=== PATIENT | female | born 1960 | race Caucasian/White ===

== ENCOUNTER 2022-02-21 12:29 | Emergency (ER) | payer MEDICAID ==
[~2022-02-21] VITALS: Ht 165.1 cm; Wt 43.6 kg
[2022-02-21 13:19] LABS: HEMATOCRIT 44.9 % (37.0-47.0); HEMOGLOBIN 14.3 g/dl (12.0-16.0); IMMATURE GRANULOCYTES 0.2 % (0.0-5.0); MEAN CELL VOLUME 90.5 fL CALC (80.0-100.0); MEAN CORPUSCULAR HGB 28.8 pG CALC (26.0-32.0); MEAN CORPUSCULAR HGB CONC 31.8 g/dL CAL (32.0-36.0); NEUT# 2.96 thou/uL (2.00-7.15); RED BLOOD COUNT 4.96 mill/uL (4.20-5.60); RED CELL DISTRI WIDTH 13.8 % (11.5-15.5)
[2022-02-21 13:36] LABS: ALBUMIN 4.6 g/dL (3.2-5.0); ALKALINE PHOSPHATASE 51 u/l (38-126); ANION GAP 16 (6-22 (CALC)); BILIRUBIN, TOTAL 0.5 mg/dL (0.0-1.4); BUN 18 mg/dL (7-17); BUN/CREATININE RATIO 20 (12-20 (CALC)); CARBON DIOXIDE 23 mmol/l (22-30); CHLORIDE 106 mmol/l (95-108); CREATININE 0.9 mg/dL (0.5-1.0); GFR > 60 ML/MIN (>=60 (CALC)); GFR FOR AFR.AMER. > 60 ML/MIN (>=60 (CALC)); LIPASE 77 u/l (23-300); POTASSIUM 4.1 mmol/l (3.5-5.1); SGOT/AST 29 u/l (14-36); SODIUM 140 mmol/l (137-146); TOTAL PROTEIN 7.9 g/dL (6.3-8.2)
[2022-02-21 13:37] LABS: D-DIMER 1.23 mg/L (0.19-0.60)
[2022-02-21 13:45] LABS: ACT PARTIAL THROMBO TIME 24.3 SECONDS (20.0-32.5); PROTHROMBIN TIME 10.4 SECONDS (9.0-12.5)
[2022-02-21] MEDS ORDERED: AMOX/K CLAV875 M1 PO (16:54)
[2022-02-21] MEDS ORDERED: MEDDOSEPAK PO (16:54)
[2022-02-21] MEDS ORDERED: TESSALON PERLE100 MG PO (16:54)
[2022-02-21 16:58] VITALS: BP 135/86
== END 2022-02-21 17:46 | disposition home or self-care (01) ==
LOC: ED 12:29
DX: J44.1 Chronic obstructive pulmonary disease with (acute) exacerbation (principal); Z87.891 Personal history of nicotine dependence; Z87.01 Personal history of pneumonia (recurrent); Z21 Asymptomatic human immunodeficiency virus [HIV] infection status
CPT/HCPCS: Q9967

== ENCOUNTER 2022-09-15 19:37 | Emergency (ER) | payer MEDICAID ==
[~2022-09-15] VITALS: Ht 165.1 cm; Wt 43.0 kg
[2022-09-15] VITALS (9 sets, daily range): BP systolic 115–143; BP diastolic 79–92
[~2022-09-15 19:37] MED LIST: AMOX/K CLAV875 M1 PO; MEDDOSEPAK PO; TESSALON PERLE100 MG PO
[2022-09-15] MEDS ORDERED: CLOPIDOGREL75 MG PO (20:21)
[2022-09-15] MEDS ORDERED: ASPIRIN81 MG PO (20:22)
[2022-09-15] MEDS ORDERED: ALBUTEROL SUL0.083 % IN (20:22)
[2022-09-15] MEDS ORDERED: ATORVASTATIN CA20 MG PO (20:23)
[2022-09-15] MEDS ORDERED: PREZISTA800 MG PO (20:24)
[2022-09-15] MEDS ORDERED: SYMBICORT1 AE1 IN (20:24)
[2022-09-15] MEDS ORDERED: PROLIA60 MG/ML SC (20:25)
[2022-09-15] MEDS ORDERED: TIVICAY50 MG PO (20:26)
[2022-09-15] MEDS ORDERED: IPRATROPIU0.5 MG/3 M IN (20:27)
[2022-09-15] MEDS ORDERED: EPIPEN 2-P0.3 MG/0.3 IM (20:27)
[2022-09-15] MEDS ORDERED: ISOSORB MONO30 MG PO (20:28)
[2022-09-15] MEDS ORDERED: LISINOPRIL5 MG PO (20:28)
[2022-09-15] MEDS ORDERED: MULTI VIT PO (20:29)
[2022-09-15] MEDS ORDERED: CALCIUM 600 +600 MG PO (20:30)
[2022-09-15] MEDS ORDERED: EDURANT25 MG PO (20:31)
[2022-09-15] MEDS ORDERED: NORVIR100 M1 PO (20:32)
[2022-09-15 20:49] LABS: HEMOGLOBIN 12.5 g/dl (12.0-16.0); MEAN CELL VOLUME 89.9 fL CALC (80.0-100.0); MEAN CORPUSCULAR HGB 29.5 pG CALC (26.0-32.0); MEAN CORPUSCULAR HGB CONC 32.8 g/dL CAL (32.0-36.0); NEUT# 1.84 thou/uL (2.00-7.15); RED BLOOD COUNT 4.24 mill/uL (4.20-5.60); RED CELL DISTRI WIDTH 14.6 % (11.5-15.5)
[2022-09-15 20:53] LABS: HEMATOCRIT 38.1 % (37.0-47.0)
[2022-09-15 21:00] LABS: ALBUMIN 4.4 g/dL (3.2-5.0); ALKALINE PHOSPHATASE 45 u/l (38-126); ANION GAP 12 (6-22 (CALC)); BILIRUBIN, TOTAL 0.3 mg/dL (0.0-1.4); BUN 17 mg/dL (8-23); BUN/CREATININE RATIO 16 (12-20 (CALC)); CARBON DIOXIDE 25 mmol/l (22-30); CHLORIDE 104 mmol/l (95-108); GFR FOR AFR.AMER. > 60 ML/MIN (>=60 (CALC)); GFR OTHER RACES 56 ML/MIN (>=60 (CALC)); SGOT/AST 34 u/l (9-36); SODIUM 138 mmol/l (137-146); TOTAL PROTEIN 7.7 g/dL (6.3-8.2)
[2022-09-15] MEDS ORDERED: PAXLOVID PO (22:22)
[2022-09-16 00:37] VITALS: BP 115/79
[2022-09-16 01:30] LABS: URINE BILIRUBIN - DIPSTICK NEGATIVE (NEGATIVE); URINE BLOOD DIPSTICK NEGATIVE (NEGATIVE); URINE COLOR YELLOW; URINE GLUCOSE - DIPSTICK NEGATIVE (NEGATIVE); URINE KETONE NEGATIVE (NEGATIVE); URINE LEUK ESTERASE NEGATIVE (NEGATIVE); URINE PROTEIN - DIPSTICK NEGATIVE (NEG-TRACE); URINE SPECIFIC GRAVITY <=1.005; URINE UROBILINOGEN - DIPSTICK 0.2 E.U./dL (0.2)
[2022-09-16 01:31] LABS: URINE NITRITE - DIPSTICK NEGATIVE (Negative)
== END 2022-09-16 00:37 | disposition home or self-care (01) ==
LOC: ED 19:37
PROVIDERS: Emergency Medicine
DX: U07.1 COVID-19 (principal); R50.9 Fever, unspecified; R05.9 Cough, unspecified; R52 Pain, unspecified; J02.9 Acute pharyngitis, unspecified; Z21 Asymptomatic human immunodeficiency virus [HIV] infection status

== ENCOUNTER 2024-10-21 03:12 | Emergency (ER) | payer SELFPAY ==
[2024-10-21] VITALS (9 sets, daily range): BP systolic 92–114; BP diastolic 67–90
[~2024-10-21] VITALS: Ht 165.1 cm; Wt 37.0 kg
[~2024-10-21 03:12] MED LIST changes: +ALBUTEROL SUL0.083 % IN; +ASPIRIN81 MG PO; +ATORVASTATIN CA20 MG PO; +CALCIUM 600 +600 MG PO; +CLOPIDOGREL75 MG PO; +EDURANT25 MG PO; +EPIPEN 2-P0.3 MG/0.3 IM; +IPRATROPIU0.5 MG/3 M IN; +ISOSORB MONO30 MG PO; +LISINOPRIL5 MG PO; +MULTI VIT PO; +NORVIR100 M1 PO; +PAXLOVID PO; +PREZISTA800 MG PO; +PROLIA60 MG/ML SC; +SYMBICORT1 AE1 IN; +TIVICAY50 MG PO
[2024-10-21] MEDS ORDERED: ONDANSETRON HCl 4 MG/2 ML SDV IV ONE (04:20)
[2024-10-21] MEDS ORDERED: MORPHINE SULFATE 4 MG/ML VIAL IV ONE ×2 (04:20→07:40)
[2024-10-21 04:26] LABS: URINE BILIRUBIN - DIPSTICK Negative (NEGATIVE); URINE BLOOD DIPSTICK Trace-intact (NEGATIVE); URINE GLUCOSE - DIPSTICK 500 mg/dL (NEGATIVE); URINE KETONE Negative (NEGATIVE); URINE LEUK ESTERASE Negative (NEGATIVE); URINE NITRITE - DIPSTICK Negative (Negative); URINE PROTEIN - DIPSTICK 30 mg/dL (NEG-TRACE); URINE UROBILINOGEN - DIPSTICK 0.2 E.U./dL (0.2)
[2024-10-21 04:27] LABS: HEMATOCRIT 35.3 % (37.0-47.0); HEMOGLOBIN 11.1 g/dl (12.0-16.0); IMMATURE GRANULOCYTES 3.5 % (0.0-5.0); LYMPH% 13.7 % (15-41); MEAN CELL VOLUME 95.1 fL CALC (80.0-100.0); MEAN CORPUSCULAR HGB 29.9 pG CALC (26.0-32.0); MEAN CORPUSCULAR HGB CONC 31.4 g/dL CAL (32.0-36.0); MONO% 8.1 % (2-13); NEUT# 20.9 thou/uL (2.00-7.15); NEUT% 74.7 % (42-76); RED BLOOD COUNT 3.71 mill/uL (4.20-5.60); RED CELL DISTRI WIDTH 14.1 % (11.5-15.5); URINE COLOR Yellow
[2024-10-21 04:31] LABS: URINE BACTERIA FEW hpf; URINE HYALINE CAST RARE lpf (NONE-RARE); URINE SQUAMOUS EPITHELIAL CELL MODERATE EPI/hpf (0-FEW)
[2024-10-21 04:39] LABS: BILIRUBIN, TOTAL 0.6 mg/dL (0.02-1.3); CREATININE 0.9 mg/dL (0.5-1.0); POTASSIUM 4.7 mmol/l (3.5-5.1)
[2024-10-21 04:41] LABS: ALBUMIN 3.4 g/dL (3.2-5.0); TOTAL PROTEIN 5.7 g/dL (6.3-8.2)
[2024-10-21] MEDS ORDERED: PIPERACILLIN Sodium-Tazobactam 3.375 GM in SODIUM CHLORIDE 0.9% 100 ML IV ONE (05:20)
[2024-10-21] MEDS ORDERED: SODIUM CHLORIDE 0.9% 1,000 ML IV ONE (05:25)
[2024-10-21] MEDS ORDERED: HYDROmorphone HCL 2 MG/AMP IV ONE (09:40)
== END 2024-10-21 09:46 | disposition short-term general hospital (02) | DRG 556 ==
LOC: ED 03:12
PROVIDERS: Family Medicine
DX: M79.81 Nontraumatic hematoma of soft tissue (principal); E86.0 Dehydration; E87.1 Hypo-osmolality and hyponatremia; I10 Essential (primary) hypertension; E11.9 Type 2 diabetes mellitus without complications; J44.9 Chronic obstructive pulmonary disease, unspecified; E78.5 Hyperlipidemia, unspecified; Z21 Asymptomatic human immunodeficiency virus [HIV] infection status; Z79.899 Other long term (current) drug therapy
CPT/HCPCS: J1171; J2405; J2543; Q9967